=== PATIENT | female | born 1990 | race Caucasian/White ===

== ENCOUNTER 2025-05-06 16:53 | Emergency (ER) | payer OTHER, MEDICAID, SELFPAY ==
[2025-05-06 17:05] VITALS: BP 112/74; PULSE 68; RESP 18; TEMP 36.7; O2SAT 99
--- NOTE | 2025-05-06 18:14 | ED_ITS ---
HPI - URI/Sore Throat General Chief Complaint: Upper Respiratory Infection Stated Complaint: Congestion / Cough Time Seen by Provider: 05/06/25 18:16 Source: patient, RN notes reviewed and old records reviewed Mode of arrival: ambulatory Limitations: no limitations History of Present Illness HPI Narrative: 34 year old female who presents to [facility] with complaints of 5 day history of nasal congestion with thick nasal drainage and cough. Patient reports that in the past 12 hours her cough has become worse, has some noted chest pressure with her cough and feels some dyspnea with exertion. Patient reports that she has been taking DayQuil and NyQuil for her symptoms without improvement. MD elicited complaint: cough, rhinorrhea and nasal congestion Pertinent past history: other (tobacco use) Onset (ago): day(s) (5) Consistency: progressively worsening Pain scale (0-10): 4 Description of mucous: yellow Able to tolerate fluids by mouth: Yes Treatments prior to arrival: other (DayQuil NyQuil) Related Data Home Medications ?Medication ?Instructions ?Recorded ?Confirmed ?Last Taken ?Type bupropion HCl 150 mg 24 hr tablet, mg PO 05/06/25 Unk nown History extended release hydroxyzine HCl 50 mg tablet mg 05/06/25 Unknown Hist ory Allergies Allergy/AdvReac Type Severity Reaction Status Date / Time risperidone (From Risperdal) Allergy Other Verified 05/06/25 17:28 Review of Systems Review of Systems: CONSTITUTIONAL: Reports malaise, no chills, sweats, or fever. EYES: Denies visual changes, redness, or discharge. ENT: Reports rhinorrhea, congestion, sinus pressure, no otalgia and no sore throat. CARDIOVASCULAR: Denies chest pain, palpitations, or edema. RESPIRATORY: Reports cough productive at times.? some dyspnea, reports chest pressure with cough GASTROINTESTINAL: Denies abdominal pain, nausea, vomiting, diarrhea SKIN: Denies rash or itching. MUSCULOSKELETAL: Denies myalgia. NEUROLOGIC: Denies headache. All systems reviewed & are unremarkable except as noted in HPI and below PMFSH Past Medical History Medical History (Updated 05/08/25 @ 08:01 by Morenita Diego NP) Bipolar disorder Anxiety Surgical History Surgical History (Updated 05/08/25 @ 08:01 by Morenita Diego NP) H/O section x2 Social History Social History (Updated 05/08/25 @ 07:58 by Morenita Diego NP) Smoking packs per day: 0.5 Smoking cigarettes per day: 10.0 Smoking status: Current every day smoker Tobacco type: cigarettes Living arrangements: with family Gender identity (if verbalized by the patient): Female Comments At time of signature, agree with nursing past medical, surgical, social and family history. There is no relevant family history pertinent to the presenting complaint Exam Narrative: GENERAL: Well-appearing, well-nourished, and in no acute distress. HEAD: Normocephalic EYES: PERRLA, conjunctivae clear ENT: Nares clear, turbinates edematous and erythematous, yellow discharge. Mucous membranes moist. TM pearly rodriguez with dull light reflex bilaterally; no tragal tenderness. Oropharynx erythematous without lesions. Tonsils not enlarged and without exudate, no drooling, no hoarseness, no trismus, uvula midline.post nasal drainage NECK: Supple. No lymphadenopathy CHEST: Clear to auscultation, breath sounds equal. No wheezing, rhonchi, rales, or stridor. No respiratory distress, speaks in full sentences.acute cough with some dyspnea with exertion reported, no tachypnea or any retractions SAO2 99% on room air HEART: Regular rate and rhythm. No murmur heard. SKIN: Warm, dry, no rash. NEURO: Alert and oriented x3. PSYCH: Normal mood and affect Course Course Emergency Course: Patient is aware of diagnosis, understands and agrees to treatment plan.? Anticipatory guidance given.? Patient agrees to follow-up as directed and is aware of reasons to seek care at the emergency department. Portions of this record may have been created with voice recognition software Level of Care: Express Care Visit Vital Signs Vital signs: Vital Signs Temperature 36.7 C 05/06/25 17:05 Pulse Rate 68 05/06/25 17:05 Respiratory Rate 18 05/06/25 17:05 Blood Pressure 112/74 05/06/25 17:05 Pulse Oximetry 99 05/06/25 17:05 Oxygen Delivery Room Air 05/06/25 17:05 Temperature 36.7 C 05/06/25 17:05 Pulse Rate 68 05/06/25 17:05 Respiratory Rate 18 05/06/25 17:05 Blood Pressure 112/74 05/06/25 17:05 Pulse Oximetry 99 05/06/25 17:05 Oxygen Delivery Room Air 05/06/25 17:05 Reviewed MDM - URI/Sore Throat MDM Narrative Medical decision making narrative: Differential diagnosis considered: [place]cocer virus, strep pharyngitis, allergic rhinitis, upper respiratory tract infection, sinusitis, rhinosinusitis, nasopharyngitis. viral pharyngitis, otitis media, otitis externa, pneumonia, bronchitis, viral cough syndrome, viral syndrome, and influenza.? Exam findings show no acute concerns or changes; patient is non-toxic appearing and is in no distress.? Patient is appropriate for outpatient treatment and follow-up. Differential Diagnosis Differential diagnosis: Likely upper respiratory infection, sinusitis, viral infection and other (acute cough) Medical Records Attestation: I reviewed the patient's medical records. Lab Data Attestation: I reviewed the patient's lab results. Critical Care Time Critical Care Time Critical Care Time: No Discharge Plan Discharge Clinical Impression: URI with cough and congestion Patient Disposition: Home Condition: Stable Instructions: Antibiotic Form, Upper Respiratory Infection (ED), Acute Cough (ED) Additional Instructions: Increase fluids especially juices and water [id number] cough and cold medicine of your choice for your symptoms Zyrtec Claritin or Cori daily may include plain Sudafed for congestion Steroids as directed--take with food heat to the face 20-30 minutes 4-6 times a day for pain Salt water gargles, throat lozenges or throat sprays as desired Antibiotic as directed--finished the medication If your symptoms persist, change or worsen significantly before you can contact your personal physician then please, without delay, go to the emergency department for further evaluation. Follow-up with PCP in 7-10 days or sooner if needed Patient Language: Greenlandic Prescriptions: New amoxicillin 875 mg tablet 875 mg PO Q12H Qty: 20 0RF Rx Instructions: take all of prescription prednisone 20 mg tablet 20 mg PO BID Qty: 10 0RF Rx Instructions: take with food No Action hydroxyzine HCl 50 mg tablet bupropion HCl 150 mg tablet extended release 24 hr PO Follow-up/Referrals: Astrid Cantu APRN [Primary Care Provider, [facility]] Time of Disposition: 18:43 Quality [place] Coma Scale Eyes: Open Verbal: Oriented and Alert Motor: Follows Commands Moisés Coma Total Score: 15
== END 2025-05-06 18:48 | disposition home or self-care (01) ==
PROVIDERS: Emergency Provider Registered Nurse; PCP Nurse Practitioner Family
DX: J06.9 Acute upper respiratory infection, unspecified (principal); F17.210 Nicotine dependence, cigarettes, uncomplicated; Z79.899 Other long term (current) drug therapy
CPT/HCPCS: 99203; G0463